=== PATIENT | female | born 2000 | race Hispanic/Latino ===

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

== ENCOUNTER 2023-02-15 20:52 | Emergency (ER) | payer OTHER ==
--- OUTSIDE RECORDS SUMMARY | 2023-02-15 20:56 | XMS REPORT | Continuity of Care Document ---
Author Name Unknown Address [address] [place] [address] [address] thconnect Address [address] [place] [address]. 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 9 [id number] 2022 00:00:00 Social History Social Habit Start Date Stop Date Quantity Comments Source Sexual orientation Maninder Holguin - External Gender identity Aniyah Holguin - External Alcohol intake 2022-06-15 00:00:00 2022-06-15 00:00:00 Lifetime non-drinker (finding) Bassem Holguin - External History of Social function 2022-06-15 00:00:00 2022-06-15 00:00:00 Bassem Holguin - External Sex Assigned At 2000 00:00:00 2000 00:00:00 Bassem Holguin - External Smoking Status Start Date Stop Date Source Never smoked tobacco Bassem Holguin - External Vital Signs Vital Name Observation Time Observation Value Comments S ource Systolic blood pressure 2022-06-15 13:15:00 118 mm[Hg] Bassem Ruiz ld - External Diastolic blood pressure 2022-06-15 13:15:00 76 mm[Hg] Bassem Joseph ld - External Heart rate 2022-06-15 13:15:00 80 /min Mario Holguin - External Body temperature 2022-06-15 13:15:00 36.39 Neisha Bassem Holguin - External Respiratory rate 2022-06-15 13:15:00 14 /min Bassem Holguin - External Body height 2022-06-15 13:15:00 162.6 cm Aniyah Holguin - External Body weight 2022-06-15 13:15:00 97.523 kg Aniyah Holguin - External BMI 2022-06-15 13:15:00 36.90 kg/m2 Aniyah baez Seybold - External Encounters Start Date/Time End Date/Time Encounter Type Admission Type Attending [facility] Department Encounter ID Source 2023-02-15 00:00:00 2023-02-15 00:00:00 Outpatient CELINA MARTINEZ [id number] Bassem sylvia 2022-07-05 00:00:00 2022-07-05 00:00:00 Outpatient ASHLEY EDWARDS [id number] Bassem sylvia 2022-07-01 00:00:00 2022-07-01 00:00:00 Outpatient ASHLEY EDWARDS [id number] Bassem sylvia 2022-06-28 00:00:00 2022-06-28 00:00:00 Outpatient ASHLEY EDWARDS [id number] Bassem sylvia 2022-06-24 14:15:00 2022-06-24 14:15:00 Outpatient BASSEM LUEVANO [id number] Bassem Holguin 2022-06-15 09:05:00 2022-06-15 09:05:00 Outpatient LABIman LUEVANO [id number] Bassem sylvia 2022-06-15 08:15:00 2022-06-15 08:15:00 Outpatient ASHLEY EDWARDS [id number] Bassem Holguin
[2023-02-15] MEDS ORDERED: KETOROLAC 30 MG/ML INJ ONE (21:21)
[2023-02-15] MEDS ORDERED: ONDANSETRON 4 MG/2 ML VIAL ONE (21:22)
[2023-02-15] MEDS ORDERED: FAMOTIDINE 20 MG/2 ML VIAL IV ONE (21:22)
[2023-02-15] MEDS ORDERED: NA CHLORIDE 0.9% 1,000 ML ONE (21:22)
[2023-02-15 21:26] LABS: Hematocrit 36.6 % (36.0-45.0); Lymphocytes % 25.7 % (15.3-44.8); MCV 80.8 fL (80-100); MPV 7.6 fL (7.6-11.3); Platelets 272 thou/uL (152-406); RBC Red Blood Cell Count 4.52 M/uL (3.86-4.86)
[2023-02-15 21:32] LABS: Specific Gravity 1.008 (1.005-1.030)
[2023-02-15 21:40] LABS: Specific Gravity 1.008 (1.005-1.030); Urine Bacteria None Seen /HPF (<20); Urine Bilirubin NEGATIVE (Negative); Urine Blood Negative (Negative); Urine Clarity Turbid (Clear); Urine Color Colorless (Yellow); Urine Glucose NEGATIVE (Negative); Urine Protein NEGATIVE (Negative); Urine RBC <5 /HPF (None Seen); Urine Urobilinogen Normal (Normal)
[2023-02-15 21:44] LABS: Albumin 3.6 g/dL (3.4-5.0); Bilirubin Total 0.4 mg/dL (0.2-1.0); Potassium 3.7 mEq/L (3.5-5.1); Protein, Total 7.9 g/dL (6.4-8.2)
--- NOTE | 2023-02-15 23:06 | RAD REPORT ---
EXAM DESCRIPTION: CT - Abdomen Pelvis W Contrast - 02/15/2023 10:16 pm CLINICAL HISTORY: ABD PAIN COMPARISON: No comparisons TECHNIQUE: Thin cut axial CT imaging of the abdomen and pelvis was performed following intravenous a dministration of Isovue 300. Multiplanar reformats were generated and reviewed. All CT scans are performed using dose optimization technique as appropriate and may include automated exposure control or mA/KV adjustment according to patient size. FINDINGS: No suspicious findings in the lung bases. The liver, spleen, adrenal glands, and pancreas show no suspicious findings. Gallbladder and biliary tree are also without suspicious finding. Symmetric renal function is seen with no hydronephrosis or suspicious renal mass. No dilated bowel loops or bowel wall thickening. Appendix is unremarkable. No free air, free fluid or inflammatory stranding. No hernia, mass or bulky lymphadenopathy. Dominant right ovarian 3.1 cm cyst. Another lobulated marginally enhancing smaller right ovarian cyst , may represent a recently ruptured follicle. The urinary bladder is without significant finding. No suspicious bony findings. IMPRESSION: No acute intra-abdominal process. Incidental findings as above.
--- NOTE | 2023-02-15 23:09 | ER ---
Nurse's Notes [facility] Name: Mai Lowry Age: 22 yrs Sex: Female : 2000 Arrival Date: 02/15/2023 Time: 20:52 Bed 16 Private MD: Diagnosis: Other ovarian cysts Presentation: 02/15 21:03 Chief complaint: Patient states: Pt c/o burning umbilical abdominal pain and nausea cm10 since Tuesday that got worse today. Coronavirus screen: Vaccine status: Patient reports being unvaccinated. At this time, the client does not indicate any symptoms associated with coronavirus-19. Ebola Screen: Patient negative for fever greater than or equal to 101.5 degrees Fahrenheit, and additional compatible Ebola Virus Disease symptoms Patient denies exposure to infectious person. Patient denies travel to an Ebola-affected area in the 21 days before illness onset. No symptoms or risks identified at this time. Initial Sepsis Screen: Does the patient meet any 2 criteria? No. Patient's initial sepsis screen is negative. Does the patient have a suspected source of infection? No. Patient's initial sepsis screen is negative. Risk Assessment: Do you want to hurt yourself or someone else? Patient reports no desire to harm self or others. Onset of symptoms was February 12, 2023. 21:03 Method Of Arrival: Ambulatory cm10 21:03 Acuity: ULISES 3 cm10 Historical: - Allergies: 21:06 No Known Allergies; cm10 - PMHx: 21:06 Asthma; cm10 - Immunization history:: Adult Immunizations unknown. - Social history:: Smoking status: Reported history of juuling and/or vaping. Screenin:28 [facility] ED Fall Risk Assessment (Adult) History of falling in the last 3 months, jw7 including since admission No falls in past 3 months (0 pts) Score/Fall Risk Level 0 - 2 = Low Risk Oriented to surroundings, Maintained a safe environment. Abuse screen: Denies threats or abuse. Denies injuries from another. Nutritional screening: No deficits noted. Tuberculosis screening: No symptoms or risk factors identified. Assessment: 21:26 General: Appears in no apparent distress. comfortable, Behavior is calm, cooperative. jw7 Pain: Complains of pain in abdomen Pain does not radiate. Pain currently is 5 out of 10 on a pain scale. Quality of pain is described as burning, Pain began suddenly, Is continuous. Neuro: Garces Agitation-Sedation Scale (RASS): 0 - Alert and Calm Level of Consciousness is awake, alert, obeys commands, Oriented to person, place, time, situation. Cardiovascular: Capillary refill < 3 seconds Clubbing of nail beds is absent JVD is absent Patient's skin is warm and dry. Respiratory: Airway is patent Trachea midline Respiratory effort is even, unlabored, Respiratory pattern is regular, symmetrical. GI: Abdomen is round non-distended, Bowel sounds present X 4 quads. Abd is soft Abdomen is tender to palpation in right upper quadrant and left upper quadrant. : No deficits noted. No signs and/or symptoms were reported regarding the genitourinary system. EENT: No deficits noted. No signs and/or symptoms were reported regarding the EENT system. Derm: Skin is intact, is healthy with good turgor, Skin is dry, Skin is normal, Skin temperature is warm. Musculoskeletal: Circulation, motion, and sensation intact. Range of motion: intact in all extremities. 22:33 Reassessment: Patient appears in no apparent distress at this time. Patient and/or tm6 family updated on plan of care and expected duration. Pain level reassessed. Patient is alert, oriented x 3, equal unlabored respirations, skin warm/dry/pink. 23:13 Reassessment: No changes from previously documented assessment. tm6 Vital Signs: 21:03 BP 135 / 82; Pulse 79; Resp 16; Temp 98.9; Pulse Ox 98% on R/A; Weight 87.09 kg; Height cm10 5 ft. 3 in. ; Pain 7/10; 21:29 BP 141 / 86; Pulse 62; Resp 16 S; Pulse Ox 100% on R/A; jw7 22:32 BP 135 / 78; Pulse 70; Pulse Ox 100% on R/A; Pain 4/10; tm6 23:13 BP 141 / 73; Pulse 87; Pulse Ox 98% on R/A; tm6 21:03 Body Mass Index 34.01 (87.09 kg, 160.02 cm) cm10 21:03 Pain Scale: Adult cm10 22:32 Pain Scale: Adult tm6 ED Course: 20:56 Patient arrived in ED. jj6 20:57 Pina Vora FNP-C is [facility]. kb 20:57 Anselmo Nesbitt MD is Attending Physician. kb 21:01 Ladan Berry RN is Primary Nurse. jw7 21: Triage completed. cm10 21:06 Arm band placed on right wrist. Patient placed in an exam room, on a stretcher. cm10 21:25 Initial lab(s) drawn, by ED staff, sent to lab. Urine collected: clean catch specimen, jw7 clear. Inserted saline lock: 20 gauge in left antecubital area, using aseptic technique. Blood collected. 21:28 Patient has correct armband on for positive identification. Bed in low position. Call jw7 light in reach. 21:29 CBC with Diff Sent. jw7 : CMP Sent. jw7 : Lipase Sent. jw7 21: Test, Urine Sent. jw7 21:29 Urinalysis w/ reflexes Sent. jw7 22:17 CT Abd/Pelvis - IV Contrast Only In Process Unspecified. EDMS 23:16 IV discontinued, intact, bleeding controlled, No redness/swelling at site. Pressure pf1 dressing applied. 23:22 No provider procedures requiring assistance completed. tm6 23:24 Provided Education on: follow up with OBGYN. tm6 Administered Medications: 21:28 Drug: NS 0.9% IV 1000 ml IV at 1 bolus Per protocol; 1000 mL bolus Route: IV; Rate: 1 jw7 bolus; Site: left antecubital; 23:14 Follow up: Response: No adverse reaction; IV Status: Completed infusion; IV Intake: tm6 1000ml 21:28 Drug: Famotidine IVP 20 mg IVP once; dilute with 10 mL 0.9% NaCl; give over 2 minutes jw7 Route: IVP; Site: left antecubital; 23:14 Follow up: Response: No adverse reaction tm6 21:28 Drug: Ondansetron IVP 4 mg IVP once; over 2 minutes Route: IVP; Site: left antecubital; jw7 23:14 Follow up: Response: No adverse reaction tm6 21:29 Drug: TORadol - Ketorolac IVP 15 mg IVP once Route: IVP; Site: left antecubital; jw7 23:14 Follow up: Response: No adverse reaction tm6 Medication: 23:23 VIS not applicable for this client. tm6 Intake: 23:14 IV: 1000ml; Total: 1000ml. tm6 Outcome: 23:09 Discharge ordered by MD. ford 23:22 Discharged to home ambulatory, with family, tm6 23:22 Condition: stable 23:22 Discharge instructions given to patient, family, Instructed on discharge instructions, follow up and referral plans. Demonstrated understanding of instructions, follow-up care, 23:24 Patient left the ED. tm6 Signatures: Dispatcher [employer] EDME Pina Vora, RETURNS CLERK-C RETURNS CLERK-CkDona Garciaj6 Ladan Berry, RN RN jw7 Sarah Sanchez, RN RN pf1 Karen Valerio RN RN cm10 Kodi Dai RN RN tm6
--- NOTE | 2023-02-15 23:09 | EDPHYS ---
Physician Documentation [facility] Name: Mai Lowry Age: 22 yrs Sex: Female : 2000 Arrival Date: 02/15/2023 Time: 20:52 Bed 16 Private MD: ED Physician Anselmo Nesbitt HPI: 02/15 21:48 This 22 yrs old Female presents to ER via Ambulatory with complaints of kb Abdominal Pain. 21:48 Pt is a 22 year old female who presents for abd pain that started 4 days ago. Denies kb n/v/d, fever. . Historical: - Allergies: 21:06 No Known Allergies; cm10 - PMHx: 21:06 Asthma; cm10 - Immunization history:: Adult Immunizations unknown. - Social history:: Smoking status: Reported history of juuling and/or vaping. ROS: 21:48 Constitutional: Negative for fever, chills, and weight loss, kb 21:48 Abdomen/GI: Positive for abdominal pain, Negative for nausea, vomiting, and diarrhea, 21:48 All other systems are negative, Exam: 21:48 Constitutional: This is a well developed, well nourished patient who is awake, alert, kb and in no acute distress. Head/Face: Normocephalic, atraumatic. ENT: Moist Mucous membranes Cardiovascular: Regular rate Respiratory: Respirations even and unlabored. No increased work of breathing. Talking in full sentences Skin: Warm, dry with normal turgor. Normal color. MS/ Extremity: Pulses equal, no cyanosis. Neurovascular intact. Full, normal range of motion. Neuro: Awake and alert, GCS 15, oriented to person, place, time, and situation. Moves all extremities. Normal gait. 21:48 Abdomen/GI: Inspection: abdomen appears normal, Bowel sounds: normal, Palpation: soft, in all quadrants, mild abdominal tenderness, in the umbilical area and right upper quadrant, Vital Signs: 21:03 BP 135 / 82; Pulse 79; Resp 16; Temp 98.9; Pulse Ox 98% on R/A; Weight 87.09 kg; Height cm10 5 ft. 3 in. ; Pain 7/10; 21:29 BP 141 / 86; Pulse 62; Resp 16 S; Pulse Ox 100% on R/A; jw7 22:32 BP 135 / 78; Pulse 70; Pulse Ox 100% on R/A; Pain 4/10; tm6 23:13 BP 141 / 73; Pulse 87; Pulse Ox 98% on R/A; tm6 21:03 Body Mass Index 34.01 (87.09 kg, 160.02 cm) cm10 21:03 Pain Scale: Adult cm10 22:32 Pain Scale: Adult tm6 MDM: 20:57 Patient medically screened. kb 21:48 Differential diagnosis: appendicitis, cholecystitis, Cholelithiasis, gastroesophageal kb reflux disease, non-specific abd pain. Data reviewed: vital signs, nurses notes. 23:08 Counseling: I had a detailed discussion with the patient and/or guardian regarding the kb historical points, exam findings, and any diagnostic results supporting the discharge/admit diagnosis, lab results, radiology results, the need for outpatient follow up, a family practitioner, to return to the emergency department if symptoms worsen or persist or if there are any questions or concerns that arise at home. 12 21:02 Order name: CBC with Diff; Complete Time: 21:42 kb 02/15 21:02 Order name: CMP; Complete Time: 21:44 kb 02/15 21:02 Order name: Lipase; Complete Time: 21:44 kb 02/15 21:02 Order name: Test, Urine; Complete Time: 21:42 kb 02/15 21:02 Order name: Urinalysis w/ reflexes; Complete Time: 21:42 kb 02/15 21:02 Order name: CT Abd/Pelvis - IV Contrast Only; Complete Time: 23:08 kb 02/15 21:02 Order name: IV Saline Lock; Complete Time: 21:28 kb 02/15 21:02 Order name: Labs collected and sent; Complete Time: 21:28 kb Administered Medications: 21:28 Drug: NS 0.9% IV 1000 ml IV at 1 bolus Per protocol; 1000 mL bolus Route: IV; Rate: 1 jw7 bolus; Site: left antecubital; 23:14 Follow up: Response: No adverse reaction; IV Status: Completed infusion; IV Intake: tm6 1000ml 21:28 Drug: Famotidine IVP 20 mg IVP once; dilute with 10 mL 0.9% NaCl; give over 2 minutes jw7 Route: IVP; Site: left antecubital; 23:14 Follow up: Response: No adverse reaction tm6 21:28 Drug: Ondansetron IVP 4 mg IVP once; over 2 minutes Route: IVP; Site: left antecubital; jw7 23:14 Follow up: Response: No adverse reaction tm6 21:29 Drug: TORadol - Ketorolac IVP 15 mg IVP once Route: IVP; Site: left antecubital; jw7 23:14 Follow up: Response: No adverse reaction tm6 Disposition: 02/16 20:03 Co-signature as Attending Physician, Anselmo Nesbitt MD I agree with the assessment sp4 and plan of care. I reviewed the patient's care provided by the Advanced Practice Provider and agree with the diagnosis and treatment plan. Disposition Summary: 02/15/23 23:09 Discharge Ordered Notes: Location: Home kb Condition: Stable kb Diagnosis - Other ovarian cysts kb Followup: kb - With: Emergency Department - When: As needed - Reason: Worsening of condition Followup: kb - With: Private Physician - When: 2 - 3 days - Reason: Recheck today's complaints, Continuance of care, Re-evaluation by your physician Discharge Instructions: - Discharge Summary Sheet kb - Ovarian Cyst, [id number] kb Forms: - Medication Reconciliation Form kb - Thank You Letter kb - Antibiotic Education kb - Prescription Opioid Use kb - Patient Portal Instructions kb - Leadership Thank You Letter kb Signatures: Dispatcher [employer] Pina Card, RUBEN MANCIA-Ladan Lindsey RN RN jw7 Anselmo Nesbitt MD MD sp4 Karen Valerio RN RN 10 Kodi Dai RN tm6
[2023-02-16 01:27] VITALS: TEMP 98.9
[2023-02-16 01:39] VITALS: BP 141/73; O2SAT 98
== END 2023-02-15 23:24 | disposition home or self-care (01) ==
LOC: ER 20:52
DX: N83.299 Other ovarian cyst, unspecified side (principal)
CPT/HCPCS: 96361; 85025; 81001; 36415; 81025; 83690; 80053; 74177; 96375; 96374; 99284; Q9967; J2405; J7030

== ENCOUNTER 2023-11-06 23:26 | Emergency (ER) | payer OTHER ==
--- OUTSIDE RECORDS SUMMARY | 2023-11-06 23:30 | XMS REPORT | Continuity of Care Document ---
Author Name Unknown Address [address] [place] [address] thconnect Address [address] [place] [address] 1 495 [place] [address] Care Team Providers Care Division Traffic Superintendent Name Role Phone [id number] Attending Clinician Unavailable ALO MCMILLAN Attending Clinician Unavaila APOLONIA Ruano Attending Clinician Unavailab ASHLEY Reynolds Attending Clinician Unava CELINA Bustos Attending Clinician Unavail able LAB90 Attending Clinician Unavailable Payers Payer Name Policy Type Policy Number Effective Date Expirati on Date Source AETNA MP [facility] 94 ON 9 [id number] 2023 00:00:00 Social History Social Habit Start Date Stop Date Quantity Comments Source Sexual orientation Maninder Holguin - External Gender identity Aniyah Holguin - External Alcoholic beverage intake 2023-09-09 00:00:00 2023-09-09 00:00:00 Lifetime non-drinker (finding) Kimmie Holguin - External Alcohol intake 2023-05-06 00:00:00 2023-05-06 00:00:00 Lifetime non-drinker (finding) Kimmie Holguin - External History of Social function 2022-06-15 00:00:00 2022-06-15 00:00:00 Kimmie Holguin - External Sex assigned at 2000 00:00:00 2000 00:00:00 Kimmie Seybold - External Smoking Status Start Date Stop Date Source Never smoked tobacco Kimmie Glover External Medications Ordered Medication Name Filled Medication Name Start Date Stop Date Current Medication? Ordering Clinician Indication Dosage Frequency Signature (SIG) Comments Components Source Sumatriptan Succinate 50 MG oral Tablet 03-09 00:00: 00 Yes [id number] Take 50 mg tablet with onset of headache may repeat every 2 hours maximum 200 mg in 24 hours. Kimmie Davisa l Immunizations Ordered Immunization Name Filled Immunization Name Date Status Comments Source Tdap- (Boostrix, Adacel) 2022-06-15 00:00:00 Completed Kimmie Samuels Meningococcal Vaccine- Conjugate(Menactra) 2016 00:00:00 Hali Samuels Influenza, Seasonal, Injectable, Preservative Free 2013-01-24 00:00:00 Completed Kimmie Samuels HPV 4 (Human Papillomavirus) 2013-01-24 00:00:00 Completed Kimmie Glover External HPV 4 (Human Papillomavirus) 2012-10-24 00:00:00 Completed Kimmie Samuels HEPATITIS A- PEDI/ADOL 2012-05-03 00:00:00 Completed Kimmie Glover External HPV 4 (Human Papillomavirus) 2012-05-03 00:00:00 Completed Kimmie Samuels Meningococcal Vaccine- Conjugate(Menactra) 2012-05-03 00:00:00 Completed Kimmie Glover External Tdap- (Boostrix, Adacel) 2012-05-03 00:00:00 Completed Kimmie Samuels Varicella Vaccine 2006-04-01 00:00:00 Completed Kimmie Glover External HEPATITIS A- PEDI/ADOL 2005-04-13 00:00:00 Completed Kimmie Holguin - External HEPATITIS A- PEDI/ADOL 2004-10-28 00:00:00 Completed Kimmie Glover External DTaP Unspecified 2003-12-12 00:00:00 Completed Kimmie Glover External MMR- Measles, Mumps, Rubella 2003-12-12 00:00:00 Completed Kimmie Samuels IPV- Inactivated Polio Vaccine 2003-12-12 00:00:00 Completed Kimmie Seybold - External DTaP Unspecified 2001-05-31 00:00:00 Completed Kimmie Hurleyybold - External Varicella Vaccine 2001-05-31 00:00:00 Completed Kimmie Seybold - [facility] 2001-05-30 00:00:00 Completed Kimmie Seybold - External MMR- Measles, Mumps, Rubella 2000-12-07 00:00:00 Completed Kimmie Seybold - External IPV- Inactivated Polio Vaccine 2000-12-07 00:00:00 Completed Kimmie Seybold - External Pneumococcal Vaccine, Conjugate 7 2000-08-17 00:00:00 Completed Kimmie Seybold - External DTaP Unspecified 2000-08-17 00:00:00 Completed Kimmie Seybold - [facility] 2000-08-17 00:00:00 Completed Kimmie Seybold - External Hepatitis B, Adolescent Or Pediatric 2000-07-25 00:00:00 Completed Kimmie Seybold - External DTaP Unspecified 2000-06-07 00:00:00 Completed Kimmie Hurleyybold - External [facility] 2000-06-07 00:00:00 Completed Kimmie Seybold - External Pneumococcal Vaccine, Conjugate 7 2000-06-07 00:00:00 Completed Kimmie Seybold - External IPV- Inactivated Polio Vaccine 2000-06-07 00:00:00 Completed Kimmie Seybold - External DTaP Unspecified 2000-04-04 00:00:00 Completed Kimmie Seybold - External Hepatitis B, Adolescent Or Pediatric 2000-04-04 00:00:00 Completed Kimmie Seybold - External Hib (HbOC) 2000-04-04 00:00:00 Completed Kimmie Seybold - External Pneumococcal Vaccine, Conjugate 7 2000-04-04 00:00:00 Completed Kimmie Seybold - External IPV- Inactivated Polio Vaccine 2000-04-04 00:00:00 Completed Kimmie Seybold - External Hepatitis B, Adolescent Or Pediatric 1999 00:00:00 Completed Kimmie Seybold - External Pneumococcal Vaccine, Conjugate 7 Unknown Completed Kimmie Seybold - External IPV- Inactivated Polio Vaccine Unknown Completed Kimmie Seybold - External IPV- Inactivated Polio Vaccine Unknown Completed Kimmie Seybold - External IPV- Inactivated Polio Vaccine Unknown Completed Kimmie Seybold - External IPV- Inactivated Polio Vaccine Unknown Completed Kimmie Seybold - External Tdap- (Boostrix, Adacel) Unknown Completed Kimmie Seybold - External Varicella Vaccine Unknown Completed Abhay olseney Seybold - External Varicella Vaccine Unknown Completed Abhay salazar Seybold - External Tdap- (Boostrix, Adacel) Unknown Completed Kimmie Seybold - External DTaP Unspecified Unknown Completed Lion archuleta Seybold - External DTaP Unspecified Unknown Completed Lion hurleyy Seybold - External DTaP Unspecified Unknown Completed Lion sey Seybold - External DTaP Unspecified Unknown Completed Lion sey Seybold - External DTaP Unspecified Unknown Completed Lion sey Seybold - External Influenza, Seasonal, Injectable, Preservative Free Unknown Completed Kimmie Hurleyy bold - External HEPATITIS A- PEDI/ADOL Unknown Completed Kimmie Seybold - External HEPATITIS A- PEDI/ADOL Unknown Completed Kimmie Seybold - External HEPATITIS A- PEDI/ADOL Unknown Completed Kimmie Seybold - External Hepatitis B, Adolescent Or Pediatric Unknown Completed Kimmie Seybold - External Hepatitis B, Adolescent Or Pediatric Unknown Completed Kimmie Seybold - External Hepatitis B, Adolescent Or Pediatric Unknown Completed Kimmie Seybold - External Hib (HbOC) Unknown Completed Kimmie Se ybold - External Hib (HbOC) Unknown Completed Kimmie Se ybold - External Hib (HbOC) Unknown Completed Kimmie Se ybold - External Hib (HbOC) Unknown Completed Kimmie Se ybold - External HPV 4 (Human Papillomavirus) Unknown Completed Kimmie Mullero ld - External HPV 4 (Human Papillomavirus) Unknown Completed Kimmie Hurleyo ld - External HPV 4 (Human Papillomavirus) Unknown Completed Kimmie Hurleyo ld - External Meningococcal Vaccine- Conjugate(Menactra) Unknown Completed Kimmie Fernandes eybold - External Meningococcal Vaccine- Conjugate(Menactra) Unknown Completed Kimmie S eybold - External MMR- Measles, Mumps, Rubella Unknown Completed Kimmie Seybold - External MMR- Measles, Mumps, Rubella Unknown Completed Kimmie Seybold - External Pneumococcal Vaccine, Conjugate 7 Unknown Completed Kimmie Seybold - External Pneumococcal Vaccine, Conjugate 7 Unknown Completed Kimmie Seybold - External Pneumococcal Vaccine, Conjugate 7 Unknown Completed Kimmie Seybold - External IPV- Inactivated Polio Vaccine Unknown Completed Kimmie Seybold - External IPV- Inactivated Polio Vaccine Unknown Completed Kimmie Seybold - External IPV- Inactivated Polio Vaccine Unknown Completed Kimmie Seybold - External IPV- Inactivated Polio Vaccine Unknown Completed Kimmie Seybold - External Tdap- (Boostrix, Adacel) Unknown Completed Kimmie Seybold - External Varicella Vaccine Unknown Completed Abhay lsey Seybold - External Varicella Vaccine Unknown Completed Abhay lsey Seybold - External Tdap- (Boostrix, Adacel) Unknown Completed Kimmie Seybold - External DTaP Unspecified Unknown Completed Lion sey Seybold - External DTaP Unspecified Unknown Completed Lion sey Seybold - External DTaP Unspecified Unknown Completed Lion sey Seybold - External DTaP Unspecified Unknown Completed Lion sey Seybold - External DTaP Unspecified Unknown Completed Lion sey Seybold - External Influenza, Seasonal, Injectable, Preservative Free Unknown Completed Kimmie Hurleyy bold - External HEPATITIS A- PEDI/ADOL Unknown Completed Kimmie Seybold - External HEPATITIS A- PEDI/ADOL Unknown Completed Kimmie Seybold - External HEPATITIS A- PEDI/ADOL Unknown Completed Kimmie Seybold - External Hepatitis B, Adolescent Or Pediatric Unknown Completed Kimmie Seybold - External Hepatitis B, Adolescent Or Pediatric Unknown Completed Kimmie Seybold - External Hepatitis B, Adolescent Or Pediatric Unknown Completed Kimmie Seybold - External Hib (HbOC) Unknown Completed Kimmie Se ybold - External Hib (HbOC) Unknown Completed Kimmie Se ybold - External Hib (HbOC) Unknown Completed Kimmie Se ybold - External Hib (HbOC) Unknown Completed Kimmie Se ybold - External HPV 4 (Human Papillomavirus) Unknown Completed Kimmie Seybo ld - External HPV 4 (Human Papillomavirus) Unknown Completed Kimmie Seybo ld - External HPV 4 (Human Papillomavirus) Unknown Completed Kimmie Seybo ld - External Meningococcal Vaccine- Conjugate(Menactra) Unknown Completed Kimmie S eybold - External Meningococcal Vaccine- Conjugate(Menactra) Unknown Completed Kimmie S eybold - External MMR- Measles, Mumps, Rubella Unknown Completed Kimmie Seybold - External MMR- Measles, Mumps, Rubella Unknown Completed Kimmie Seybold - External Pneumococcal Vaccine, Conjugate 7 Unknown Completed Kimmie Seybold - External Pneumococcal Vaccine, Conjugate 7 Unknown Completed Kimmie Seybold - External Pneumococcal Vaccine, Conjugate 7 Unknown Completed Kimmie Seybold - External IPV- Inactivated Polio Vaccine Unknown Completed Kimmie Seybold - External IPV- Inactivated Polio Vaccine Unknown Completed Kimmie Seybold - External IPV- Inactivated Polio Vaccine Unknown Completed Kimmie Seybold - External IPV- Inactivated Polio Vaccine Unknown Completed Kimmie Seybold - External Tdap- (Boostrix, Adacel) Unknown Completed Kimmie Seybold - External Varicella Vaccine Unknown Completed Abhay lsey Seybold - External Varicella Vaccine Unknown Completed Abhay lsey Seybold - External Tdap- (Boostrix, Adacel) Unknown Completed Kimmie Seybold - External DTaP Unspecified Unknown Completed Lion sey Seybold - External DTaP Unspecified Unknown Completed Lion sey Seybold - External DTaP Unspecified Unknown Completed Lion sey Seybold - External DTaP Unspecified Unknown Completed Lion sey Seybold - External DTaP Unspecified Unknown Completed Lion hurleyy Seybold - External Influenza, Seasonal, Injectable, Preservative Free Unknown Completed Kimmie Hurleyy bold - External HEPATITIS A- PEDI/ADOL Unknown Completed Kimmie Seybold - External HEPATITIS A- PEDI/ADOL Unknown Completed Kimmie Seybold - External HEPATITIS A- PEDI/ADOL Unknown Completed Kimmie Seybold - External Hepatitis B, Adolescent Or Pediatric Unknown Completed Kimmie Seybold - External Hepatitis B, Adolescent Or Pediatric Unknown Completed Kimmie Seybold - External Hepatitis B, Adolescent Or Pediatric Unknown Completed Kimmie Seybold - External Hib (HbOC) Unknown Completed Kimmie Se ybold - External Hib (HbOC) Unknown Completed Kimmie Se ybold - External Hib (HbOC) Unknown Completed Kimmie Se ybold - External Hib (HbOC) Unknown Completed Kimmie Se ybold - External HPV 4 (Human Papillomavirus) Unknown Completed Kimmie Hurleyybo ld - External HPV 4 (Human Papillomavirus) Unknown Completed Kimmie ybo ld - External HPV 4 (Human Papillomavirus) Unknown Completed Kimmie Hurleyybo ld - External Meningococcal Vaccine- Conjugate(Menactra) Unknown Completed Kimmie S eybold - External Meningococcal Vaccine- Conjugate(Menactra) Unknown Completed Kimmie S eybold - External MMR- Measles, Mumps, Rubella Unknown Completed Kimmie Seybold - External MMR- Measles, Mumps, Rubella Unknown Completed Kimmie Seybold - External Pneumococcal Vaccine, Conjugate 7 Unknown Completed Kimmie Seybold - External Pneumococcal Vaccine, Conjugate 7 Unknown Completed Kimmie Hurleyybold - External Pneumococcal Vaccine, Conjugate 7 Unknown Completed Kimmie Seybold - External IPV- Inactivated Polio Vaccine Unknown Completed Kimmie Seybold - External IPV- Inactivated Polio Vaccine Unknown Completed Kimmie Hurleyybold - External IPV- Inactivated Polio Vaccine Unknown Completed Kimmie Seybold - External IPV- Inactivated Polio Vaccine Unknown Completed Kimmie Seybold - External Tdap- (Boostrix, Adacel) Unknown Completed Kimmie Seybold - External Varicella Vaccine Unknown Completed Abhay lsey Seybold - External Varicella Vaccine Unknown Completed Abhay lsey Seybold - External Tdap- (Boostrix, Adacel) Unknown Completed Kimmie Seybold - External DTaP Unspecified Unknown Completed Lion hurleyy Seybold - External DTaP Unspecified Unknown Completed Lion hurleyy Seybold - External DTaP Unspecified Unknown Completed Lion hurleyy Seybold - External DTaP Unspecified Unknown Completed Lion sey Seybold - External DTaP Unspecified Unknown Completed Lion hurleyy Seybold - External Influenza, Seasonal, Injectable, Preservative Free Unknown Completed Kimmie Hurleyy bold - External HEPATITIS A- PEDI/ADOL Unknown Completed Kimmie Seybold - External HEPATITIS A- PEDI/ADOL Unknown Completed Kimmie Seybold - External HEPATITIS A- PEDI/ADOL Unknown Completed Kimmie Seybold - External Hepatitis B, Adolescent Or Pediatric Unknown Completed Kimmie Hurleyybold - External Hepatitis B, Adolescent Or Pediatric Unknown Completed Kimmie Seybold - External Hepatitis B, Adolescent Or Pediatric Unknown Completed Kimmie Seybold - External Hib (HbOC) Unknown Completed Kimmie Hurley ybold - External Hib (HbOC) Unknown Completed Kimmie Hurley ybold - External Hib (HbOC) Unknown Completed Kimmie Se ybold - External Hib (HbOC) Unknown Completed Kimmie Se ybold - External HPV 4 (Human Papillomavirus) Unknown Completed Kimmie Hurleyybo ld - External HPV 4 (Human Papillomavirus) Unknown Completed Kimmie Hurleyybo ld - External HPV 4 (Human Papillomavirus) Unknown Completed Kimmie Mullero ld - External Meningococcal Vaccine- Conjugate(Menactra) Unknown Completed Kimmie S eybold - External Meningococcal Vaccine- Conjugate(Menactra) Unknown Completed [facility] eybold - External MMR- Measles, Mumps, Rubella Unknown Completed Kimmie Seybold - External MMR- Measles, Mumps, Rubella Unknown Completed Kimmie Seybold - External Pneumococcal Vaccine, Conjugate 7 Unknown Completed Kimmie Seybold - External Pneumococcal Vaccine, Conjugate 7 Unknown Completed Kimmie Seybold - External Vital Signs Vital Name Observation Time Observation Value Comments S gabriel Systolic blood pressure 2023-09-09 18:21:00 106 mm[Hg] Kimmie Seybo ld - External Diastolic blood pressure 2023-09-09 18:21:00 83 mm[Hg] Kimmie Seybo ld - External Heart rate 2023-09-09 18:21:00 90 /min Kelse y Seybold - External Body temperature 2023-09-09 18:21:00 36.61 Neisha Kimmie Seybold - External Respiratory rate 2023-09-09 18:21:00 22 /min Kimmie Seybold - External Body height 2023-09-09 18:21:00 162.6 cm Aniyah ey Seybold - External Body weight 2023-09-09 18:21:00 102.059 kg Aniyah ey Seybold - External BMI 2023-09-09 18:21:00 38.62 kg/m2 Aniyah ey Seybold - External Systolic blood pressure 2023-07-08 18:46:00 128 mm[Hg] Kimmie Seybo ld - External Diastolic blood pressure 2023-07-08 18:46:00 70 mm[Hg] Kimmie Seybo ld - External Heart rate 2023-07-08 18:46:00 100 /min Kelse y Seybold - External Respiratory rate 2023-07-08 18:46:00 18 /min Kimmie Seybold - External Body height 2023-07-08 18:46:00 162.6 cm Aniyah ey Seybold - External Body weight 2023-07-08 18:46:00 100.699 kg Aniyah ey Seybold - External BMI 2023-07-08 18:46:00 38.11 kg/m2 Aniyah ey Seybold - External Systolic blood pressure 2023-05-06 21:22:00 116 mm[Hg] Kimmie Seybo ld - External Diastolic blood pressure 2023-05-06 21:22:00 73 mm[Hg] Kimmie Seybo ld - External Heart rate 2023-05-06 21:22:00 86 /min Kelse y Seybold - External Respiratory rate 2023-05-06 21:22:00 20 /min Kimmie Seybold - External Body height 2023-05-06 21:22:00 162.6 cm Aniyah ey Seybold - External Body weight 2023-05-06 21:22:00 96.163 kg Aniyah ey Seybold - External BMI 2023-05-06 21:22:00 36.39 kg/m2 Aniyah ey Seybold - External Systolic blood pressure 2023-04-04 17:28:00 128 mm[Hg] Kimmie Seybo ld - External Diastolic blood pressure 2023-04-04 17:28:00 64 mm[Hg] Kimmie Seybo ld - External Heart rate 2023-04-04 17:28:00 78 /min Kelse y Seybold - External Body temperature 2023-04-04 17:28:00 36.67 Neisha Kimmie Seybold - External Respiratory rate 2023-04-04 17:28:00 16 /min Kimmie Seybold - External Body height 2023-04-04 17:28:00 162.6 cm Aniyah ey Seybold - External Body weight 2023-04-04 17:28:00 91.354 kg Aniyah ey Seybold - External BMI 2023-04-04 17:28:00 34.57 kg/m2 Aniyah ey Seybold - External Systolic blood pressure 2022-06-15 13:15:00 118 mm[Hg] Kimmie Seybo ld - External Diastolic blood pressure 2022-06-15 13:15:00 76 mm[Hg] Kimmie Seybo ld - External Heart rate 2022-06-15 13:15:00 80 /min Kelse y Seybold - External Body temperature 2022-06-15 13:15:00 36.39 Neisha Kimmie Seybold - External Respiratory rate 2022-06-15 13:15:00 14 /min Kimmie Seybold - External Body height 2022-06-15 13:15:00 162.6 cm Aniyah ey Seybold - External Body weight 2022-06-15 13:15:00 97.523 kg Aniyah ey Seybold - External BMI 2022-06-15 13:15:00 36.90 kg/m2 Aniyah ey Seybold - External Encounters Start Date/Time End Date/Time Encounter Type Admission Type Attending [facility] Care Department Encounter ID Source 2023-09-09 14:30:00 2023-09-09 14:30:00 Outpatient LAB59 KIMMIE LUEVANO [id number] Kimmie [facility] 2023-09-09 13:45:00 2023-09-09 13:45:00 Outpatient ANÍBALLUISAALO Louie [id number] Kimmie [facility] 2023-09-09 11:30:00 2023-09-09 11:30:00 Outpatient ANNEAPOLONIA [id number] Kimmie [facility] 2023-07-08 14:15:00 2023-07-08 14:15:00 Outpatient ALO MCMILLAN [id number] [facility] 2023-05-06 15:45:00 2023-05-06 15:45:00 Outpatient ANÍBALLUISAALO Louie [id number] [facility] 2023-04-04 11:30:00 2023-04-04 11:30:00 Outpatient ALO MCMILLAN [id number] [facility] 2023-03-08 00:00:00 2023-03-08 00:00:00 Outpatient ASHLEY EWDARDS [id number] [facility] 2023-02-15 00:00:00 2023-02-15 00:00:00 Outpatient CELINA MARTINEZ [id number] Kimmie [facility] 2022-07-05 00:00:00 2022-07-05 00:00:00 Outpatient ASHLEY EDWARDS [id number] Kimmie [facility] 2022-07-01 00:00:00 2022-07-01 00:00:00 Outpatient ASHLEY EDWARDS [id number] Kimmie [facility] 2022-06-28 00:00:00 2022-06-28 00:00:00 Outpatient ASHLEY EDWARDS KIMMIE LUEVANO [id number] [facility]22-06-[facility] 14:15:00 2022-06-24 14:15:00 Outpatient KIMMIE LUEVANO [id number] [facility]22-06-15 09:05:00 2022-06-15 09:05:00 Outpatient LAB90 KIMMIE LUEVANO [id number] [facility] 2022-06-15 08:15:00 2022-06-15 08:15:00 Outpatient GRACEASHLEY KIMMIE LUEVANO [id number] [facility] Notes Date/Time Note Provider Source 2023-07-08 13:44:13 Chief Complaint Patient presents with Follow-up Shaylee Valerio CMA II [facility] 2023-05-06 15:22:33 Chief Complaint Patient presents with Follow-up Shaylee Valerio CMA II [facility] 2023-04-04 11:24:43 Chief Complaint Patient presents with New Patient Consult ER f/u Ovarian cyst Milagro Moses CMA II [facility]
[2023-11-06 23:59] LABS: Protime INR 0.98
[2023-11-07 00:01] LABS: Absolute Basophils 0.1 K/uL (0-0.5); Absolute Eosinophils 0.2 K/uL (0-0.5); Absolute Lymphocytes (CBC) 2.9 K/uL (0.7-4.9); Absolute Monocytes 0.7 K/uL (0.1-1.3); Absolute Neutrophil 7.2 K/uL (1.8-8.0); Basophils % 0.7 % (0-1.3); Eosinophils % 1.9 % (0-4.4); Hematocrit 38.5 % (36.0-45.0); Hemoglobin 12.6 g/dL (12.0-15.0); Lymphocytes % 25.9 % (15.3-44.8); MCH 26.9 pg (27.0-35.0); MCHC 32.7 g/dL (32.0-36.0); MCV 82.1 fL (80-100); MPV 7.6 fL (7.6-11.3); Monocytes % 6.4 % (3.3-12.3); Neutrophils % 65.1 % (41.7-73.7); Platelets 265 thou/uL (152-406); RBC Red Blood Cell Count 4.69 M/uL (3.86-4.86); Red Cell Distribution Width 14.3 % (12.1-15.2)
[2023-11-07 00:18] LABS: ALT/SGPT 31 U/L (13-56); AST/SGOT 20 U/L (15-37); Albumin 3.4 g/dL (3.4-5.0); Albumin/Globulin Ratio 0.8 (1.1-1.8); Alkaline Phosphatase 76 U/L (45-117); Anion Gap 8.7 mEq/L (5.0-15.0); BUN Blood Urea Nitrogen 14 mg/dL (7-18); Bicarbonate 26 mEq/L (21-32); Bilirubin Total 0.3 mg/dL (0.2-1.0); Globulin 4.1 g/dL (2.3-3.5); Glomerular Filtration Rate 80 ml/min (=/>90); Glucose Level 95 mg/dL (74-106); Magnesium 1.9 mg/dL (1.6-2.4); NT PRO-BNP 77 pg/mL (<125); Potassium 3.7 mEq/L (3.5-5.1); Protein, Total 7.5 g/dL (6.4-8.2); Sodium Level 138 mEq/L (136-145)
[2023-11-07 00:21] LABS: Bilirubin Direct < 0.2 mg/dL (0-0.2); Bilirubin Indirect, Calculated 0.1 mg/dL (0.2-0.8); Troponin High Sensitivity < 3.0 pg/mL (<58.9)
--- NOTE | 2023-11-07 01:14 | EDPHYS ---
Physician Documentation [facility] Name: Mai Lowry Age: 22 yrs Sex: Female : 2000 Arrival Date: 11/06/2023 Time: 23:26 Bed 3 Private MD: ED Physician Robert Everett HPI: 11/05 23:35 This 22 yrs old Female presents to ER via EMS with complaints of General cp Weakness. 23:35 The patient has experienced syncope, lost consciousness. Onset: The symptoms/episode cp began/occurred just prior to arrival, after verbal argument with family member. 23:35 Duration: This was a single episode, that lasted an unknown period of time. Associated cp injury: The patient did not suffer any apparent associated injury. Associated signs and symptoms: Pertinent positives: vomiting, c/o weakness all over, Pertinent negatives: abdominal pain, chest pain. Current symptoms: general weakness. 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 - Infectious Disease History:: Denies. - Social history:: Smoking status: unknown. ROS: 23:40 Constitutional: Negative for body aches, chills, fever, cp 23:40 Eyes: Negative for injury, pain, redness, and discharge, cp 23:40 ENT: Negative for drainage from ear(s), ear pain, sore throat, difficulty swallowing, difficulty handling secretions, 23:40 Cardiovascular: Negative for chest pain, edema, palpitations, 23:40 Respiratory: Negative for cough, shortness of breath, wheezing, 23:40 Abdomen/GI: Positive for vomiting, Negative for abdominal pain, diarrhea, constipation, 23:40 Neuro: Positive for syncope, weakness, Negative for altered mental status, headache, numbness, seizure activity, 23:40 All other systems are negative, Exam: 23:45 Constitutional: The patient appears in no acute distress, alert, awake, cp non-diaphoretic, non-toxic, well developed, well nourished, obese, 23:45 Head/Face: Normocephalic, atraumatic. cp 23:45 Eyes: Periorbital structures: appear normal, Pupils: equal, round, and reactive to light and accomodation, Extraocular movements: intact throughout, Conjunctiva: normal, no exudate, no injection, Lids and lashes: appear normal, bilaterally, 23:45 ENT: External ear(s): are unremarkable, Nose: is normal, Mouth: Lips: moist, Oral mucosa: pink and intact, moist, Posterior pharynx: Airway: no evidence of obstruction, patent, 23:45 Neck: C-spine: vertebral tenderness, is not appreciated, crepitus, is not appreciated, ROM/movement: is normal, is supple, without pain, no range of motions limitations, no meningismus, no nuchal rigidity, 23:45 Chest/axilla: Inspection: normal, Palpation: is normal, no crepitus, no tenderness, 23:45 Cardiovascular: Rate: normal, Rhythm: regular, 23:45 Respiratory: the patient does not display signs of respiratory distress, Respirations: normal, no use of accessory muscles, no retractions, labored breathing, is not present, Breath sounds: are clear throughout, no decreased breath sounds, no stridor, no wheezing, 23:45 Abdomen/GI: Inspection: abdomen appears normal, Palpation: abdomen is soft and non-tender, in all quadrants, 23:45 Back: pain, is absent, ROM is normal, 23:45 Skin: cellulitis, is not appreciated, no rash present. 23:45 Neuro: Orientation: to person, place \T\ time. Mentation: able to follow commands, Cerebellar function: Romberg testing is negative, Motor: moves all fours, no focal deficits, Sensation: no obvious gross deficits, 23:47 ECG was reviewed by the Attending Physician. cp Vital Signs: 23:28 BP 137 / 102; Pulse 72; Resp 20; Temp 98; Pulse Ox 97% ; Weight 104.33 kg; Height 5 ft. bm8 3 in. ; Pain 5/10; 23:50 BP 125 / 87; Pulse 66; Resp 16; Temp 98; Pulse Ox 100% ; Pain 0/10; bm8 0902 00:00 BP 130 / 75; Pulse 64; Resp 16; Pulse Ox 100% on R/A; al5 09 23:28 Body Mass Index 40.74 (104.33 kg, 160.02 cm) bm8 11/05 23:28 Pain Scale: Adult bm8 23:50 Pain Scale: Adult bm8 [place] Coma Score: 11/05 23:50 Eye Response: spontaneous(4). Motor Response: obeys commands(6). Verbal Response: bm8 oriented(5). Total: 15. MDM: 23:32 Patient medically screened. cp 11/06 01:14 Data reviewed: vital signs, nurses notes, lab test result(s), EKG, radiologic studies, cp CT scan, and as a result, I will discharge patient. 01:14 Differential Diagnosis: cardiac arrhythmia, drug effect, emotional response, , cp pseudo seizure, seizure, vasovagal episode. Independent interpretation of the following test(s) in the Emergency Department EKG: See my EKG interpretation above. Counseling: I had a detailed discussion with the patient and/or guardian regarding the historical points, exam findings, and any diagnostic results supporting the discharge/admit diagnosis, lab results, radiology results, to return to the emergency department if symptoms worsen or persist or if there are any questions or concerns that arise at home. Response to treatment: the patient's symptoms have resolved after treatment, and as a result, I will discharge patient. 11/05 23:31 Order name: Basic Metabolic Panel; Complete Time: 00:33 cp 11/06 00:33 Interpretation: Normal except: GFR 80. cp 11/05 23:31 Order name: CBC with Diff; Complete Time: 00:33 cp 11/06 00:33 Interpretation: Normal except: WBC 11.10; MCH 26.9. cp 11/05 23:31 Order name: LFT's; Complete Time: 00:33 cp 11/06 01:14 Interpretation: Normal except: IBILI, CALC 0.1; GLOB 4.1; A/G 0.8. cp 11/05 23:31 Order name: Magnesium; Complete Time: 00:33 cp 11/05 23:31 Order name: NT PRO-BNP; Complete Time: 00:33 cp 11/05 23:31 Order name: PT-INR; Complete Time: 00:33 cp 11/05 23:31 Order name: Troponin HS; Complete Time: 00:33 cp 11/06 01:14 Interpretation: Reviewed. cp 11/05 23:31 Order name: Test, Serum; Complete Time: 00:33 cp 11/05 23:31 Order name: CT Head Brain wo Cont: patient possibly cp 11/05 23:31 Order name: Cardiac monitoring; Complete Time: 23:49 cp 11/05 23:31 Order name: EKG - Nurse/Tech; Complete Time: 23:49 cp 11/05 23:31 Order name: IV Saline Lock; Complete Time: 23:49 cp 11/05 23:31 Order name: Labs collected and sent; Complete Time: 23:49 cp 11/05 23:31 Order name: O2 Per Protocol; Complete Time: 23:49 cp 11/05 23:31 Order name: O2 Sat Monitoring; Complete Time: 23:49 cp EC/01 23:47 Rate is 72 beats/min. Rhythm is regular. [place] interval is normal. QRS interval is normal. cp QT interval is normal. T waves are Inverted in leads III, aVR. Interpreted by me. Reviewed by me. Administered Medications: No medications were administered Disposition Summary: 11/07/23 01:13 Discharge Ordered Notes: Location: Home cp Problem: new cp Symptoms: have improved cp Condition: Stable cp Diagnosis - Syncope cp Followup: cp - With: Private Physician - When: 2 - 3 days - Reason: Recheck today's complaints Discharge Instructions: - Discharge Summary Sheet cp - Syncope cp Forms: - Medication Reconciliation Form cp - Antibiotic Education cp - Prescription Opioid Use cp - Patient Portal Instructions cp - Leadership Thank You Letter cp Addendum: 11/13/2023 20:34 I was immediately available for consultation during this patient's visit. I did not e c2 personally see the patient or discuss the patient with the MIRNA. . Signatures: Dispatcher [employer] EDMS Mikey Aguero PA PA cp Robert Everett MD MD ec2 Easton Begum, RN RN bm8 Corrections: (The following items were deleted from the chart) 11/05 23:31 23:31 BASIC METABOLIC PANEL+C.LAB.BRZ ordered. EDMS EDMS 23:31 23:31 CBC+H.LAB.BRZ ordered. EDMS EDMS 23:31 23:31 HEPATIC FUNCTION+C.LAB.BRZ ordered. EDMS EDMS 23:31 23:31 MAGNESIUM+C.LAB.BRZ ordered. EDMS EDMS 23:31 23:31 PROBNP+C.LAB.BRZ ordered. EDMS EDMS : 23:31 PROTIME (+INR)+COAG.LAB.BRZ ordered. EDMS EDMS 23:31 Troponin High Sensitivity+C.LAB.BRZ ordered. EDMS EDMS : 23:31 TEST, SERUM+SC.LAB.BRZ ordered. EDMS EDMS 23:31 SARS-COV-2 Antigen Rapid+I.LAB.BRZ ordered. EDMS EDMS 23:31 Influenza Screen (A \T\ B)+BA.LAB.BRZ ordered. EDMS EDMS : 23:31 Urinalysis+U.LAB.BRZ ordered. EDMS EDMS 23:32 23:32 Head Brain Wo Cont+CT.RAD.BRZ ordered. EDMS EDMS
--- NOTE | 2023-11-07 01:14 | ER ---
Nurse's Notes [facility] Name: Mai Lowry Age: 22 yrs Sex: Female : 2000 Arrival Date: 11/06/2023 Time: 23:26 Bed 3 Private MD: Diagnosis: Syncope Presentation: 11/05 23:28 Chief complaint: Patient states: she was at home and got in argument with a family bm8 member then passed out. Now she feels weak all over. Coronavirus screen: At this time, the client does not indicate any symptoms associated with coronavirus-19. Ebola Screen: Patient negative for fever greater than or equal to 101.5 degrees Fahrenheit, and additional compatible Ebola Virus Disease symptoms Patient denies exposure to infectious person. Patient denies travel to an Ebola-affected area in the 21 days before illness onset. No symptoms or risks identified at this time. Initial Sepsis Screen: Does the patient meet any 2 criteria? No. Patient's initial sepsis screen is negative. Does the patient have a suspected source of infection? No. Patient's initial sepsis screen is negative. Risk Assessment: Do you want to hurt yourself or someone else? Patient reports no desire to harm self or others. Onset of symptoms was November 06, 2023 at 22:00. 23:28 Method Of Arrival: EMS: [facility] [place] [id number] 23:28 Acuity: ULISES 3 bm8 Triage Assessment: 23:31 General: Appears distressed, uncomfortable, Behavior is cooperative, appropriate for bm8 age, crying. Pain: Denies pain. EENT: No deficits noted. No signs and/or symptoms were reported regarding the EENT system. Neuro: No deficits noted. 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 Full function Gait is Speech is normal, Facial symmetry appears normal, Pupils are PERRLA, Pupil Size: 3mm Reports weakness in "all over". Cardiovascular: No deficits noted. Heart tones S1 S2 present Capillary refill < 3 seconds in bilateral fingers toes Patient's skin is warm and dry. Respiratory: Airway is patent Respiratory effort is even, unlabored, Respiratory pattern is regular, symmetrical, Breath sounds are clear bilaterally. GI: No signs and/or symptoms were reported involving the gastrointestinal system. : No signs and/or symptoms were reported regarding the genitourinary system. Derm: No signs and/or symptoms reported regarding the dermatologic system. Musculoskeletal: Circulation, motion, and sensation intact. Capillary refill < 3 seconds, in bilateral fingers. toes. Range of motion: intact in all extremities. 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 - Infectious Disease History:: Denies. - Social history:: Smoking status: unknown. Screenin:50 [facility] ED Fall Risk Assessment (Adult) History of falling in the last 3 months, bm8 including since admission No falls in past 3 months (0 pts) Confusion or Disorientation No (0 pts) Intoxicated or Sedated No (0 pts) Impaired Gait Yes (1 pt) Mobility Assist Device Used No (0 pt) Altered Elimination No (0 pt) Score/Fall Risk Level 0 - 2 = Low Risk Oriented to surroundings, Maintained a safe environment, Educated pt \\T\\ family on fall prevention, incl call for assistance when getting out of bed, Assessed \\T\\ reinforced patient's understanding of fall precautions, Hourly rounding (assess needs \\T\\ fall precautionary measures) done, Used ambulatory aids as needed (educated on \\T\\ assisted with), Used gait belt as appropriate. Abuse screen: Denies threats or abuse. Nutritional screening: No deficits noted. Tuberculosis screening: No symptoms or risk factors identified. Assessment: 23:50 Reassessment: pt declined covid and flu testing. bm8 11/06 00:40 Reassessment: Patient appears in no apparent distress at this time. Patient and/or bm8 family updated on plan of care and expected duration. Pain level reassessed. Patient is alert, oriented x 3, equal unlabored respirations, skin warm/dry/pink. pt stated that she is feeling better and would like to go home now. Provider informed. Patient denies pain at this time. Patient states feeling better. Patient states symptoms have improved. Vital Signs: 11/05 23:28 BP 137 / 102; Pulse 72; Resp 20; Temp 98; Pulse Ox 97% ; Weight 104.33 kg; Height 5 ft. bm8 3 in. ; Pain 5/10; 23:50 BP 125 / 87; Pulse 66; Resp 16; Temp 98; Pulse Ox 100% ; Pain 0/10; bm8 11/06 00:00 BP 130 / 75; Pulse 64; Resp 16; Pulse Ox 100% on R/A; al5 11/05 23:28 Body Mass Index 40.74 (104.33 kg, 160.02 cm) bm8 11/05 23:28 Pain Scale: Adult bm8 23:50 Pain Scale: Adult bm8 [place] Coma Score: 11/05 23:50 Eye Response: spontaneous(4). Motor Response: obeys commands(6). Verbal Response: bm8 oriented(5). Total: 15. ED Course: 23:28 Patient arrived in ED. bm8 23:29 Mikey Aguero PA is PHCP. cp 23:29 Robert Everett MD is Attending Physician. cp 23:31 Triage completed. bm8 23:31 Arm band placed on left wrist. bm8 23:50 Patient has correct armband on for positive identification. Placed in gown. Bed in low bm8 position. Call light in reach. Side rails up X2. Adult w/ patient. Client placed on continuous cardiac and pulse oximetry monitoring. NIBP monitoring applied. 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 Pulse ox on. NIBP on. Door closed. Noise minimized. Warm blanket given. Pillow given. Verbal reassurance given. Head of bed elevated. 23:50 No provider procedures requiring assistance completed. Initial lab(s) drawn, by edgardo jarrett sent to lab. EKG done, by ED staff, reviewed by Mikey ADAMS. Inserted saline lock: 20 gauge in right antecubital area, using aseptic technique. Blood collected. Flushed with 10 mL NS. Patient maintains SpO2 saturation greater than 95% on room air. 11/06 00:18 Easton Begum, RN is Primary Nurse. bm8 00:24 CT Head Brain wo Cont: patient possibly In Process Unspecified. EDMS 01:28 Provided Education on: discharge to home. al5 01:29 IV discontinued, intact, bleeding controlled, No redness/swelling at site. Pressure al5 dressing applied. Administered Medications: No medications were administered Medication: 11/05 23:50 VIS not applicable for this client. bm8 Outcome: 11/06 01:13 Discharge ordered by . karly 01:29 Discharged to home ambulatory, with significant other, al5 01:29 Condition: good 01:29 Discharge instructions given to patient, Instructed on discharge instructions, follow up and referral plans. Demonstrated understanding of instructions, follow-up care, 01:29 Patient left the ED. al5 Signatures: Dispatcher [employer] EDMS Mikey Aguero PA PA cp McDonald, Brad, RN RN bm8 Chayo Montoya RN RN al5
[2023-11-07 01:49] VITALS: TEMP 98
[2023-11-07 01:50] VITALS: O2SAT 100
[2023-11-07 01:52] VITALS: BP 130/75
--- NOTE | 2023-11-07 14:29 | RAD REPORT ---
EXAM DESCRIPTION: CT - Head Brain Wo Cont - 11/07/2023 6:36 am CLINICAL HISTORY: 71 years, Male, Seizure. COMPARISON: CT Head and C-spine 07/05/2023. FINDINGS: Multiple transaxial tomograms of the brain were obtained from the base of the skull to the vertex without contrast. An individualized dose optimization technique, Automated Exposure Control, was utilized for the perfo rmed procedure. Brain: The brain demonstrate prominence of the sulci and gyri corresponding to mild brain atrophy. 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 Questionable minima l hypodensity within the left inferior frontal lobe could correspond to chronic subdural and/or cysti c hygroma on axial image 20-24, findings are similar to prior study. No acute intracranial hemorrhage . No midline shift and/or mass effect. No intra-/or extra-axial fluid collections. Ventricles: Minimal compensatory dilatation left lateral ventricle posterior horn. Otherwise the late ral ventricles and cisterns displace normal appearance. Vasculature: No visualized abnormalities in the arteries or dural venous sinuses. Scalp/skull: The calvarium demonstrate to be intact with no evidence for acute bony injuries. Sinuses: The visualized paranasal sinuses and mastoid air cells demonstrate to be clear. Orbits: No significant abnormalities in the visualized orbital structures. IMPRESSION: No acute intracranial hemorrhage. 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 Questionable minimal hypodensity within the left inferior frontal lobe could correspond to chronic [place] bdural and/or cystic hygroma, findings are similar to prior study. Electronically signed by: Virgilio Nicole MD 11/07/2023 03:12 AM CDT Due to temporary technical issues with the PACS/Fluency reporting system, reports are being signed by the in house radiologist without review as a courtesy to ensure prompt reporting. The interpreting r adiologist is fully responsible for the content of the report.
--- NOTE | 2023-11-08 12:40 | EKG ---
Test Date: 2023-11-06 Test Time: 23:40:45 Manager User Experience: ARVIN MEASUREMENT RESULTS: Intervals: Rate: 72 AR: 132 QRSD: 84 QT: 402 QTc: 440 [place]: P: 24 AR: 132 QRS: 35 T: 18 INTERPRETIVE STATEMENTS: Normal sinus rhythm with sinus arrhythmia Normal ECG No previous ECG available for comparison Electronically Signed On 11-08-23 12:37:25 CDT by Cj Roland
== END 2023-11-07 01:29 | disposition home or self-care (01) ==
LOC: ER 23:26
DX: R55 Syncope and collapse (principal); R53.1 Weakness; R11.10 Vomiting, unspecified; Z11.52 Encounter for screening for COVID-19
CPT/HCPCS: 36415; 70450; 80048; 80076; 83735; 83880; 84484; 84703; 85025; 85610; 93005; 99285

== ENCOUNTER 2024-03-12 00:05 | Emergency (ER) | payer OTHER, SELFPAY ==
--- NOTE | 2024-03-12 00:41 | EDPHYS ---
Physician Documentation [facility] Name: Mai Lowry Age: 23 yrs Sex: Female : 2000 Arrival Date: 03/12/2024 Time: 00:05 Bed 8 Private MD: ED Physician Hectro Nunn HPI: 03/12 00:57 This 23 yrs old Female presents to ER via Ambulatory with complaints of Rash. rt 00:57 Patient presents to the ED with hives starting about an hour prior to arrival after the rt patient had an argument with her significant other. It is worse on the right forearm, but also involves the left arm as well as the abdomen. Denies any tongue swelling, difficulty breathing. Denies other acute complaints, symptoms are mild in severity, no other aggravating or elevating factors.. 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 - Infectious Disease History:: Denies. - Social history:: Smoking status: Patient denies any tobacco usage or history of. - Family history:: not pertinent. ROS: 00:57 Constitutional: Negative for fever, chills, and weight loss, Cardiovascular: Negative rt for chest pain, palpitations, and edema, Respiratory: Negative for shortness of breath, cough, wheezing, and pleuritic chest pain, Abdomen/GI: Negative for abdominal pain, nausea, vomiting, diarrhea, and constipation, MS/Extremity: Negative for injury and deformity, 00:57 Skin: Positive for Hives, itching, Exam: 00:57 Constitutional: This is a well developed, well nourished patient who is awake, alert, rt and in no acute distress. Head/Face: Normocephalic, atraumatic. ENT: Nares patent. No nasal discharge, no septal abnormalities noted. Tympanic membranes are normal and external auditory canals are clear. Oropharynx with no redness, swelling, or masses, exudates, or evidence of obstruction, uvula midline. Mucous membranes moist. Chest/axilla: Normal chest wall appearance and motion. Nontender with no deformity. No lesions are appreciated. Cardiovascular: Regular rate and rhythm with a normal S1 and S2. No gallops, murmurs, or rubs. Normal PMI, no JVD. No pulse deficits. Respiratory: Lungs have equal breath sounds bilaterally, clear to auscultation and percussion. No rales, rhonchi or wheezes noted. No increased work of breathing, no retractions or nasal flaring. Abdomen/GI: Soft, non-tender, with normal bowel sounds. No distension or tympany. No guarding or rebound. No evidence of tenderness throughout. 00:57 Skin: Urticarial rash noted to the right, left forearm as well as the anterior abdominal wall. Involves a small portion of the skin.. Vital Signs: 00:20 BP 146 / 97; Pulse 88; Resp 16; Temp 97.9; Pulse Ox 100% ; Weight 81.65 kg; Height 5 bm8 ft. 3 in. ; Pain 0/10; 00:20 Body Mass Index 31.89 (81.65 kg, 160.02 cm) bm8 00:20 Pain Scale: Adult bm8 [place] Coma Score: 00:26 Eye Response: spontaneous(4). Motor Response: obeys commands(6). Verbal Response: bm8 oriented(5). Total: 15. MDM: 00:34 Medical Screening Exam initiated rt 00:57 Differential diagnosis: Hives, anaphylaxis. Data reviewed: vital signs, nurses notes. rt ED course: No signs of anaphylaxis, only mild hives noted. Will treat antihistamines, steroids. Return precautions discussed.. Administered Medications: 00:58 Drug: predniSONE PO 40 mg PO once Route: PO; bm8 00:58 Follow up: Response: No adverse reaction bm8 00:58 Drug: diphenhydrAMINE PO 50 mg PO once Route: PO; bm8 00:58 Follow up: Response: No adverse reaction bm8 Disposition Summary: 03/12/24 00:41 Discharge Ordered Notes: Location: Home rt Problem: new rt Symptoms: are unchanged rt Condition: Stable rt Diagnosis - Urticaria, unspecified rt Followup: rt - With: Private Physician - When: 2 - 3 days - Reason: Discharge Instructions: - Discharge Summary Sheet rt - Hives rt Forms: - Medication Reconciliation Form rt - Antibiotic Education rt - Prescription Opioid Use rt - Patient Portal Instructions rt - Leadership Thank You Letter rt Prescriptions: - Prednisone 20 mg Oral Tablet - take 2 tablets ORAL route once daily for 5 days; 10 tablet; Refills: 0, Product rt Selection Permitted Signatures: Hector Nunn MD MD rt Easton Begum, RN RN bm8
--- NOTE | 2024-03-12 00:41 | ER ---
Nurse's Notes [facility] Name: Mai Lowry Age: 23 yrs Sex: Female : 2000 Arrival Date: 03/12/2024 Time: 00:05 Bed 8 Private MD: Diagnosis: Urticaria, unspecified Presentation: 03/12 00:20 Chief complaint: Patient states: I was arguing with my significant other about 1 hr ago bm8 and broke out in hives on my right arm and trunk. Coronavirus screen: Vaccine status: At this time, the client does not indicate any symptoms associated with coronavirus-19. Ebola Screen: Patient negative for fever greater than or equal to 101.5 degrees Fahrenheit, and additional compatible Ebola Virus Disease symptoms Patient denies exposure to infectious person. Patient denies travel to an Ebola-affected area in the 21 days before illness onset. No symptoms or risks identified at this time. Onset: The symptoms/episode began/occurred acutely. Anaphylaxis evaluation, no signs or symptoms of anaphylaxis were noted. Initial Sepsis Screen: Does the patient meet any 2 criteria? No. Patient's initial sepsis screen is negative. Does the patient have a suspected source of infection? No. Patient's initial sepsis screen is negative. Risk Assessment: Do you want to hurt yourself or someone else? Patient reports no desire to harm self or others. Onset of symptoms was March 11, 2024 at 23:30. 00:20 Method Of Arrival: Ambulatory bm8 00:20 Acuity: ULISES 5 bm8 Triage Assessment: 00:24 General: Appears in no apparent distress. comfortable, Behavior is calm, cooperative, bm8 appropriate for age. Pain: Denies pain. EENT: No deficits noted. No signs and/or symptoms were reported regarding the EENT system. Neuro: No deficits noted. Level of Consciousness is awake, alert, obeys commands, Oriented to person, place, time, situation, Appropriate for age. Cardiovascular: Denies chest pain, lightheadedness, shortness of breath, Capillary refill < 3 seconds in bilateral fingers Patient's skin is warm and dry. Respiratory: Airway is patent Trachea midline Respiratory effort is even, unlabored, Respiratory pattern is regular, symmetrical. GI: No signs and/or symptoms were reported involving the gastrointestinal system. : No signs and/or symptoms were reported regarding the genitourinary system. Derm: Rash noted that is urticaria, Reports itching. Musculoskeletal: No signs and/or symptoms reported regarding the musculoskeletal system. [employer]ING [employer]PER[employer]: 00:24 LMP 02/20/2024, unknown bm8 Historical: - Allergies: 00:24 No Known Allergies; bm8 - Home Meds: 00:24 ProAir HFA inhalation [Active]; bm8 - PMHx: 00:24 Asthma; bm8 - PSHx: 00:24 None; bm8 - Immunization history:: Adult Immunizations up to date. - Infectious Disease History:: Denies. - Social history:: Smoking status: Patient denies any tobacco usage or history of. - Family history:: not pertinent. Screenin:26 [facility] ED Fall Risk Assessment (Adult) History of falling in the last 3 months, bm8 including since admission No falls in past 3 months (0 pts) Confusion or Disorientation No (0 pts) Intoxicated or Sedated No (0 pts) Impaired Gait No (0 pts) Mobility Assist Device Used No (0 pt) Altered Elimination No (0 pt) Score/Fall Risk Level 0 - 2 = Low Risk Oriented to surroundings, Maintained a safe environment, Educated pt \T\ family on fall prevention, incl call for assistance when getting out of bed, Assessed \T\ reinforced patient's understanding of fall precautions, Hourly rounding (assess needs \T\ fall precautionary measures) done, Used ambulatory aids as needed (educated on \T\ assisted with), Used gait belt as appropriate. Abuse screen: Denies threats or abuse. Nutritional screening: No deficits noted. Tuberculosis screening: No symptoms or risk factors identified. Assessment: 00:59 Reassessment: Patient appears in no apparent distress at this time. No changes from bm8 previously documented assessment. Patient and/or family updated on plan of care and expected duration. Pain level reassessed. Patient is alert, oriented x 3, equal unlabored respirations, skin warm/dry/pink. Respiratory: Airway is patent Trachea midline Respiratory effort is even, unlabored, Respiratory pattern is regular, symmetrical, Breath sounds are clear bilaterally. Vital Signs: 00:20 BP 146 / 97; Pulse 88; Resp 16; Temp 97.9; Pulse Ox 100% ; Weight 81.65 kg; Height 5 bm8 ft. 3 in. ; Pain 0/10; 00:20 Body Mass Index 31.89 (81.65 kg, 160.02 cm) bm8 00:20 Pain Scale: Adult bm8 Zackary Coma Score: 00:26 Eye Response: spontaneous(4). Motor Response: obeys commands(6). Verbal Response: bm8 oriented(5). Total: 15. ED Course: 00:09 Patient arrived in ED. gm2 00:20 Easton Begum, RN is Primary Nurse. bm8 00:24 Triage completed. bm8 00:24 Arm band placed on right wrist. bm8 00:26 Patient has correct armband on for positive identification. Bed in low position. Call bm8 light in reach. Side rails up X 1. Adult w/ patient. Client placed on continuous cardiac and pulse oximetry monitoring. NIBP monitoring applied. Pulse ox on. NIBP on. Door closed. Noise minimized. Warm blanket given. Verbal reassurance given. 00:26 No provider procedures requiring assistance completed. Patient maintains SpO2 bm8 saturation greater than 95% on room air. 00:27 Hector Nunn MD is Attending Physician. rt 00:59 Provided Education on: post er care. bm8 00:59 Patient did not have IV access during this emergency room visit. bm8 Administered Medications: 00:58 Drug: predniSONE PO 40 mg PO once Route: PO; bm8 00:58 Follow up: Response: No adverse reaction bm8 00:58 Drug: diphenhydrAMINE PO 50 mg PO once Route: PO; bm8 00:58 Follow up: Response: No adverse reaction bm8 Medication: 00:26 VIS not applicable for this client. bm8 Outcome: 00:41 Discharge ordered by . rt 00:59 Discharged to home ambulatory, with family, bm8 00:59 Condition: stable 00:59 Discharge instructions given to patient, family, Instructed on discharge instructions, follow up and referral plans. no drinking with medication, no driving heavy equipment, medication usage, safety practices, Demonstrated understanding of instructions, follow-up care, medications, Prescriptions given X 1, 01:00 Patient left the ED. bm8 Signatures: Hector Nunn MD MD rt Shaila Tovar 2 Easton Begum, RN RN bm8
[2024-03-12] MEDS ORDERED: DIPHENHYDRAMINE 25 MG TAB/CAP ONE (00:43)
[2024-03-12] MEDS ORDERED: predniSONE 20 MG TAB ONE (00:43)
[2024-03-12 01:09] VITALS: BP 146/97; TEMP 97.9; O2SAT 100
== END 2024-03-12 01:00 | disposition home or self-care (01) ==
LOC: ER 00:05
DX: L50.9 Urticaria, unspecified (principal); J45.909 Unspecified asthma, uncomplicated
CPT/HCPCS: 99283; J7512